=== PATIENT | female | born 1990 ===

== ENCOUNTER 2018-06-09 19:41 | Emergency (ER) | payer MEDICAID, OTHER ==
[2018-06-09 20:18] VITALS: BMI 31.3
[2018-06-09 21:16] LABS: HEMOGLOBIN 10.8 g/dL (12.0-16.0); MEAN CELL VOLUME 95.6 fl (81.0-99.0); MEAN CORPUSCULAR HEMOGLOBIN 32.6 pg (27.0-31.0); MEAN CORPUSCULAR HGB CONC 34.1 g/dL (33.0-37.0); RBC 3.32 Mil/uL (3.80-5.20); RED CELL DISTRIBUTION WIDTH 13.7 % (11.5-14.5); WHITE BLOOD COUNT 8.8 K/uL (4.8-10.8)
[2018-06-09 21:21] LABS: PROTHROMBIN TIME 10.7 Seconds (9.8-13.1)
[2018-06-09 21:23] LABS: PARTIAL THROMBOPLASTIN TIME 29.6 Seconds (25.6-37.1)
[2018-06-09 21:24] LABS: SQUAMOUS EPITHIAL 2 /hpf (0-5); URINE BACTERIA RARE (<OCC); URINE BILIRUBIN NEGATIVE (NEGATIVE); URINE BLOOD NEGATIVE (NEGATIVE); URINE CLARITY SLIGHTY-CLOUDY (Clear); URINE COLOR YELLOW (YELLOW); URINE GLUCOSE (UA) NEG (Normal); URINE LEUKOCYTE ESTERASE NEG Leu/uL (Negative); URINE PROTEIN 30 mg/dL (NEGATIVE)
[2018-06-09 21:25] LABS: ALB/GLOB RATIO 0.9 (1.0-2.1); ALBUMIN 3.5 g/dL (3.5-5.0); ALT/SGPT 14 U/L (9-52); AMYLASE 64 U/L (30-110); AST/SGOT 19 U/L (14-36); BLOOD UREA NITROGEN 6 mg/dl (7-17); CALCIUM 9.1 mg/dL (8.4-10.2); GFR NON-AFRICAN AMERICAN > 60; LIPASE 15 U/L (23-300)
[2018-06-09 22:59] LABS: SPECIMEN COMMENT SL CLOUDY
[2018-06-10 04:44] VITALS: BP 120/59; PULSE 80; RESP 20; TEMP 98.6
--- NOTE | 2018-06-10 08:14 | OBHP ---
Datetime: 06/09/2018 20:52 IP Adm Impression: , intrauterine ; No Active Labor IP Admit Plan: Observation/Evaluation; Discharge home Admit Comment, IP Provider: 28-year-old presents at 26.2 weeks for lower abdominal pain/pres sure. She reports this pain started at 6pm this evening, about 2 hours prior to presentation. She als o complains of pink mucous discharge 1 hour prior to presentation but denies blood or loss of fluid. Her previous two pregnancies were vaginal. The first was complicated by preeclampsia with severe feat ures and was induced at 28 weeks (2007), baby was 4lbs and spent 1 week in the hospital as per the wilfred tiek[facility]. Her second was inducted at 39 weeks (2010) and baby was 8lbs. Last year (2016) she h ad an ectopic peregnancy. She recovered well with no complications. She is a patient of Dr Bethel edmonds nd last saw him two weeks ago. She says she is feeling pressure and contractions every 10 minutes, wi th the pain radiating down to her right knee. She dmits to dizziness, headache, and nausea but denies blurry vision, CP, SOB, vomiting, constipation, diarrhea, and urinary symptoms. TEO: September 13, 2018 Vitals: stable, BP 130/68 PMH: Blounts dz Family Hx: denies Social Hx: denies Surg Hx: b/l tibia surgery, gastric bypass 2013 Allergies: none Meds: denies OBHx: regular 28 days, 5 days of bleeding, previous Hx of preeclampsia 2007, ectopic in 2017 Labs: HIV unknown, GBS unknown, HbsAg unknown, Rubella unkown, GC unknown, CL unknown, RPR unknown , ABO unkown PE: in no acute distress CV: RRR Resp: no respiratory distress Extremities: no pitting edema Abdominal: tenderness suprapubic Pelvic: Dr. Simon speculum, cervix high and closed, FFN test done (neg), yeast infection presen t (asymptomatic) ROS: admits to dizziness, headache, and nausea but denies blurry vision, CP, SOB, vomiting, consti pation, diarrhea, and urinary symptoms. Assessment: 28-year-old presents at 26.2 weeks for lower abdominal pain/pressure for two h ours prior to presentation. Plan: -Observe EFM - category I, 15x15 accelerations, no decelerations, FHR 140's, moderate variability -Pre-eclamptic labs (wnl) -UA (wnl) -Amylase _ Lipase (wnl) -FFN (negative) -Patient discharged with RX for terazol 7 -Instructed patient regarding emergent signs and symptoms requiring immediate visit to ED ([facility] ed movement, loss of fluid, vaginal bleeding, intense contractions) Patient seen with and case discussed with Dr Simon. ----Bibi Honeycutt, PGY1 [facility] Family Medicine Pelvic Type - PN: Adequate Extremities - PN: Normal Abdomen - PN: Normal Back - PN: Normal Breast - PN: Not Done Lungs - PN: Normal Heart - PN: Normal Thyroid - PN: Not Done Neurologic - PN: Normal HEENT - PN: Normal General - PN: Normal FHR - Baseline A Provider: 140 EGA AdmitDate IP: 25.5 IP Chief Complaint: Uterine contractions; Maternal discomfort NICHD Variability Prov Fetus A: Moderate 6-25bpm NICHD Accel Fetus A IP Provider: 15X15 FHR Category Provider Fetus A: Category I NICHD Decel Fetus A IP Provider: None Dilatation, Provider: 0 Genitourinary Exam: Not Done DTRs - PN: Normal
== END 2018-06-09 23:15 | disposition home or self-care (01) ==
LOC: H.EROB2 19:41
DX: O26.852 Spotting complicating pregnancy, second trimester (principal); O26.92 Pregnancy related conditions, unspecified, second trimester; R10.2 Pelvic and perineal pain; Z3A.26 26 weeks gestation of pregnancy

== ENCOUNTER 2018-08-31 19:14 | Emergency (ER) | payer OTHER ==
--- NOTE | 2018-08-31 20:01 | OBHP ---
Datetime: 08/31/2018 19:49 IP Adm Impression: Term, intrauterine ; No Active Labor IP Adm Impression Other: False labor IP Admit Plan: Observation/Evaluation; Discharge home Admit Comment, IP Provider: 28yo @ 37w3d presenting here complaining of some pelvic discomfort. She denies any current bleeding or leakage of fluid. She reports good movem,ents. She decided to call because she was previously induced for elevated BPs. She denies any urinary symptoms. OBhx: , miscarriage X1 PMHx: Hx of depression not on meds for this PsHx: Orthopedic surgery on both Tibia Social Hx: Quit smoking, Denies drug or alcohol use. O: Afebrile, Heart: RRR Chest: CTA B/L Abd: Soft, NT, BS- present Ext: Normal FHR: Category 1 [place]: Occasional SVE: FT/50/-2 Assessmenbt: IUP at 37weeks. Pelvic pressure No evidence of established labor NST- Reactive. Plan as Per Dr Hugo: D/c Home . Follow up with Dr Higgins within 1 week. Labor instructions given. Pelvic Type - PN: Adequate Extremities - PN: Normal Abdomen - PN: Normal Back - PN: Normal Breast - PN: Normal Lungs - PN: Normal Heart - PN: Normal Thyroid - PN: Normal Neurologic - PN: Normal HEENT - PN: Normal General - PN: Normal Presentation-Admit: Vertex FHR - Baseline A Provider: 140s Membranes, Provider: Intact Contraction Comments Provider: occasional Gestation - Est Wks by US: 37.0 EGA AdmitDate IP: 37.3 IP Chief Complaint: Maternal discomfort NICHD Variability Prov Fetus A: Moderate 6-25bpm NICHD Accel Fetus A IP Provider: 15X15 FHR Category Provider Fetus A: Category II NICHD Decel Fetus A IP Provider: None Dilatation, Provider: 2 Effacement, Provider: 50 Station, Provider: -2 Genitourinary Exam: Normal DTRs - PN: Normal
[2018-09-01 02:04] VITALS: BP 118/62; PULSE 87
== END 2018-08-31 20:15 | disposition home or self-care (01) ==
LOC: H.EROB2 19:14
DX: O26.93 Pregnancy related conditions, unspecified, third trimester (principal); R10.2 Pelvic and perineal pain; Z3A.37 37 weeks gestation of pregnancy

== ENCOUNTER 2018-09-08 10:20 | Inpatient (IN) | payer OTHER ==
[2018-09-08 11:00] VITALS: BMI 35.0
[2018-09-08] MEDS ORDERED: Lactated Ringer's 1,000 ML IV ONE (11:47)
[2018-09-08] MEDS ORDERED: Lactated Ringer's 1,000 ML IV SCH ×2 (12:00)
--- NOTE | 2018-09-08 16:26 | OBPN ---
Datetime: 09/08/2018 02:45 IP Informed Consent Obtain: Vaginal Delivery IP Procedures: Sterile Vag Exam IP Progress Plan: Continue present management; Induction Membranes, Provider: Intact Contraction Comments Provider: Irregular FHR - Baseline A Provider: 140 IP Progress Note Comment: Patient is comfortable, no complaints VE=2/40/-3, cervidil placed FHR = 140 mod edwige, +accels, no decels TOCO = Irregular contractions A/P 1. Cervidil placed for induction 2. CEFM and TOCO 3. Re-evaluate as needed Vital Signs Provider: Reviewed; Within Normal Limits NICHD Accel Fetus A IP Provider: 15X15 NICHD Variability Prov Fetus A: Moderate 6-25bpm Dilatation, Provider: 2 Effacement, Provider: 40 Station, Provider: -3 NICHD Decel Fetus A IP Provider: None Datetime: 08/31/2018 19:49 Gestation - Est Wks by US: 37.0 Presentation-Admit: Vertex FHR Category Provider Fetus A: Category II
[2018-09-08 17:06] LABS: BASO % 0.5 % (0.0-2.0); EOS % 0.5 % (0.0-4.0); HEMOGLOBIN 9.1 g/dL (12.0-16.0); LYMPH # 1.4 K/uL (1.0-4.3); LYMPH % 17.7 % (20.0-40.0); MEAN CELL VOLUME 89.5 fl (81.0-99.0); MEAN CORPUSCULAR HEMOGLOBIN 29.7 pg (27.0-31.0); MEAN CORPUSCULAR HGB CONC 33.2 g/dL (33.0-37.0); MEAN PLATELET VOLUME 8.3 fl (7.2-11.7); MONO # 0.3 K/uL (0.0-0.8); MONO % 4.5 % (0.0-10.0); NEUT # 5.9 K/uL (1.8-7.0); NEUT % 76.8 % (50.0-75.0); NRBC % 0.1 % (0.0-0.0); RBC 3.06 Mil/uL (3.80-5.20); WHITE BLOOD COUNT 7.7 K/uL (4.8-10.8)
[2018-09-09] MEDS ORDERED: Fentanyl/Bupivacaine HCl 250 ML EPI ONE (00:33)
--- NOTE | 2018-09-09 02:52 | OBADHP ---
Datetime: 09/08/2018 11:35 Admit Comment, IP Provider: 28 y/o , 38.4 weeks based on LMP, presents to unit for decreased movements for last 2 days. Patient was seen earlier this morning at Dr. Gonzáles's office and wa s advised to come to L_D for induction of labor. Decreased movements started 4-5 days ago and for last 2days patient is not felling baby's movement. Reports irregular CTx since yesterday. Denies any VB or LOF. Last sexual activity 2 weeks ago. ROS: Negative for 12 system ROS eccept mentioned above PMD: Dr. Hugo OBhx: , miscarriage X1 PMHx: Hx of depression not on meds for this PsHx: Orthopedic surgery on both Tibia, Gastric bypass 4 years ago Social Hx: Quit smoking, Denies drug or alcohol use. F/H: Father HTN, GF Lung Ca Allergies: NKDA O: Afebrile, No acute distress Heart: RRR, S1S2 present Chest: CTA B/L Abd: Soft, NT, BS- present Ext: Normal, No pedal edema SVE: 2cm/50%/-2, N active VB [place]: Occasional A/P: 28 y/o , 38.4 weeks based on LMP, admitted for for decreased movements for last 2 days. - [place] and EFM monitoring - Admit to unit - Initiate labor induction protocol - Cervidil - LR 999 and 125 ml/hr - CBC, Type and screen, HIV, RPR - Cervix 2cm/50%/-2 - Monitor for cervical changes Edmundo Hidalgo ,PGY1 Pelvic Type - PN: Adequate Extremities - PN: Normal Abdomen - PN: Normal Back - PN: Normal Breast - PN: Normal Lungs - PN: Normal Heart - PN: Normal Thyroid - PN: Not Done Neurologic - PN: Normal HEENT - PN: Normal General - PN: Normal Comments, ACOG Physical Exam: O: Afebrile, No acute distress Heart: RRR, S1S2 present Chest: CTA B/L Abd: Soft, NT, BS- present Ext: Normal, No pedal edema SVE: 2cm/50%/-2, N active VB IP Hx Assessment: The History has been Reviewed and is Current IP Chief Complaint: Decreased movement Genitourinary Exam: Normal DTRs - PN: Normal EGA AdmitDate IP: 38.4 IP Adm Impression: Term, intrauterine IP Admit Plan: Admit to unit; Initiate labor protocol Datetime: 09/08/2018 02:45 FHR - Baseline A Provider: 140 Membranes, Provider: Intact Contraction Comments Provider: Irregular Vital Signs Provider: Reviewed; Within Normal Limits NICHD Variability Prov Fetus A: Moderate 6-25bpm NICHD Accel Fetus A IP Provider: 15X15 NICHD Decel Fetus A IP Provider: None Dilatation, Provider: 2 Effacement, Provider: 40 Station, Provider: -3 Datetime: 08/31/2018 19:49 IP Adm Impression Other: False labor Presentation-Admit: Vertex Gestation - Est Wks by US: 37.0 FHR Category Provider Fetus A: Category II
--- NOTE | 2018-09-09 02:58 | OBPN ---
Datetime: 09/09/2018 02:51 IP Progress Impression Other: cervidil had been placed IP Procedures: Artificial ROM IP Progress Plan: Augmentation Membranes, Provider: Ruptured Amniotic Fluid Color, Provider: Clear Contraction Comments Provider: irreg FHR - Baseline A Provider: 150 Presentation-Admit: cephalic IP Progress Note Comment: Cervidil removed and AROM clear fluid will start on Pitocin augumentation Vital Signs Provider: Within Normal Limits NICHD Variability Prov Fetus A: Moderate 6-25bpm Dilatation, Provider: 2-3 Effacement, Provider: 80 Station, Provider: -2 NICHD Decel Fetus A IP Provider: None
[2018-09-09] MEDS ORDERED: Oxytocin 30 UNIT 30 UNITS/500 ML BAG IV ONE ×2 (03:01)
[2018-09-09] MEDS ORDERED: Lidocaine 1% Inj (20ml) ONE (12:14)
[2018-09-09] MEDS ORDERED: OXYTOCIN/0.9 % NS 20 UNIT/1,000 ML BAG IV ONE (15:05)
[2018-09-09] MEDS ORDERED: Oxycodone/Acetaminophen 5/325 mg Tab PO PRN (15:05)
[2018-09-09] MEDS ORDERED: Benzocaine/Menthol SPRAY TOP PRN ×2 (15:05→17:40)
--- NOTE | 2018-09-09 15:27 | OBDS ---
MATERNAL INFORMATION Estimated Blood Loss (ml): 250 Maternal Complications: Other Other Maternal Complications: hx of decreased FM Provider Comments: Delivered a living Baby Boy, appears term, cried spontaneously, nuchal cord x1 lo ose 9/9, AF clear Placenta complete and intact Perineum intact No cervical or vaginal laceratio ns noted Uterus contracted well No complications LABOR SUMMARY EDC: 09/18/2018 00:00 No. Babies in Womb: 1 LABOR INFORMATION Reason for Induction: Other Reason for Induction Other: decreased FM; early labor with cervical changes Onset of Labor: Not in Labor. Group B Beta Strep: Negative Steroids Given: None Reason Steroids Not Administered: Not Applicable MEMBRANES Membranes Rupture Method: Artificial Rupture of Membranes: 09/09/2018 02:46 Amniotic Fluid Color: Clear Amniotic Fluid Amount: Large Amniotic Fluid Odor: Normal VAGINAL DELIVERY Episiotomy: None Laceration Extension: N/A Laceration Type: None Laceration Repair: Not Applicable Laceration Repair Note: n/a Sponge Count Correct: Yes Sharps Count Correct: Yes Count Comment: count correct and verified by RN CSECTION DELIVERY Primary Indication: N/A Secondary Indication: N/A CSection Incision: N/A Uterine Closure: N/A PRESENTATION/POSITION BABY A Presentation: Cephalic PLACENTA INFORMATION BABY A Placenta Method of Delivery: Spontaneous Placenta Status: Delivered CORD INFORMATION BABY A Nuchal Cord : Around Neck x1, Loose
[2018-09-10 06:30] LABS: BASO % 0.5 % (0.0-2.0); EOS # 0.1 K/uL (0.0-0.7); EOS % 1.1 % (0.0-4.0); HEMOGLOBIN 7.4 g/dL (12.0-16.0); LYMPH # 1.8 K/uL (1.0-4.3); LYMPH % 23.5 % (20.0-40.0); MEAN CELL VOLUME 88.8 fl (81.0-99.0); MEAN CORPUSCULAR HEMOGLOBIN 29.1 pg (27.0-31.0); MEAN CORPUSCULAR HGB CONC 32.7 g/dL (33.0-37.0); MEAN PLATELET VOLUME 8.1 fl (7.2-11.7); MONO # 0.6 K/uL (0.0-0.8); MONO % 7.4 % (0.0-10.0); NEUT # 5.2 K/uL (1.8-7.0); NEUT % 67.5 % (50.0-75.0); NRBC % 0.1 % (0.0-0.0); RBC 2.56 Mil/uL (3.80-5.20); RED CELL DISTRIBUTION WIDTH 13.3 % (11.5-14.5); WHITE BLOOD COUNT 7.8 K/uL (4.8-10.8)
--- NOTE | 2018-09-10 07:55 | OBPPN ---
Datetime: 09/10/2018 07:48 PP Pain Prov: Within normal limits PP Pain Prov comment: No SOB, chest or leg pains PP Nausea Prov: Denies PP Flatus Prov: Yes PP Nausea Prov comment: denies dizziness or weakness PP Breasts Prov: Normal PP Lungs Prov: Normal PP Abdomen/Uterus Prov: Abnormal PP Lochia Prov: Normal PP Vulva/Perineum Prov: Normal PP CVA Tenderness Prov: Normal PP Extremities Prov: Normal PP C/S Incision Prov: Not Applicable PP Progress Prov: Normal PP Comments Phys Exam Prov: breast NE, NT; breast feeding; Abd soft ND, depressible, fundus at umb NT; [place] wnl, ext no calf tenderness PP Impression Prov: Normal progression PP Plan Prov: Continue present management PP Impression Other Prov: anemia PP Progress Note Prov: pt asymptomatic and declined blood transfusion. will start on iron OOB and am bulation Continue PP care IP PP Procedures: None
[2018-09-11] MEDS: Oxycodone/Acetaminophen 5/325 mg Tab PO PRN ×2 (04:35→08:56)
--- NOTE | 2018-09-11 07:30 | OBPPN ---
Datetime: 09/11/2018 07:27 PP Pain Prov: Within normal limits PP Pain Prov comment: Denies SOB, chest or leg pains PP Nausea Prov: Denies PP BM Prov: Yes PP Nausea Prov comment: voiding well PP Breasts Prov: Normal PP Lungs Prov: Normal PP Abdomen/Uterus Prov: Abnormal PP Vulva/Perineum Prov: Normal PP CVA Tenderness Prov: Normal PP Extremities Prov: Normal PP C/S Incision Prov: Not Applicable PP Progress Prov: Normal PP Impression Prov: Normal progression PP Plan Prov: Discharge PP Impression Other Prov: anemia PP Progress Note Prov: stable and asymptomatic D/C home with instructions and follow up office IP PP Procedures: None Vital Signs Provider PP: Reviewed
--- NOTE | 2018-09-11 07:32 | OBDCSUM ---
Datetime: 09/11/2018 07:30 Discharged to, Provider: Home Follow up at, Provider: Dr Hugo Disch Instr Activity: Bedrest; May be up to bathroom; May be up for meals; May Shower Disch Instr Diet: Regular Discharge Instructions, Provider: Routine instructions given Discharge Diagnosis, Provider: Term Delivered Follow up in weeks, Provider: 4 wks Disch Referrals: None Contraception discussed, Prov: Yes Disch Activity Restrictions: No exercising; No lifting; No driving; Minimize walking; Minimize stair -climbing; No sexual activity; Nothing in vagina - [place], tampons, douche Discharge Comment, Provider: Continue PNC vit and iron Instructions given Discharge Diagnosis Prov Other: anemia Contraception after Delivery: Undecided Datetime: 08/31/2018 20:03 Disch Instr Activity: Bedrest; May be up to bathroom; May be up for meals; May Shower Discharge Instructions, Provider: Routine instructions given Discharge Diagnosis, Provider: Term Delivered Discharge Time: 09/11/2018 20:03 Follow up in weeks, Provider: 4-6 wks Contraception discussed, Prov: Yes Disch Activity Restrictions: No exercising; No lifting; No driving; Minimize walking; Minimize stair -climbing; No sexual activity; Nothing in vagina - [place], tampons, douche Discharge Diagnosis Prov Other: anemia Contraception after Delivery: Undecided
[2018-09-11 17:42] VITALS: BP 124/82; PULSE 68; RESP 20; TEMP 97.8; O2SAT 100
== END 2018-09-11 12:20 | disposition home or self-care (01) | DRG 373 ==
LOC: H.EROB2 10:20 → H.L&D 10:49 → H.EROB2 11:51 → H.OB/GYN 09-09 17:45
PROVIDERS: ADMIT Specialist; ATTEND Specialist
PROC: 4A1HXCZ Monitoring of Products of Conception, Cardiac Rate, External Approach (ICD-10-PCS; 2018-09-08)
PROC: 10E0XZZ Delivery of Products of Conception, External Approach (ICD-10-PCS; principal; 2018-09-09)
DX: O36.8130 Decreased fetal movements, third trimester, not applicable or unspecified (principal); Z3A.38 38 weeks gestation of pregnancy; Z37.0 Single live birth; O69.81X0 Labor and delivery complicated by cord around neck, without compression, not applicable or unspecified